=== PATIENT | male | born 1990 | race Caucasian/White ===

== ENCOUNTER 2018-01-24 09:00 | Emergency (ER) | payer OTHER, MEDICAID ==
[~2018-01-24] VITALS: Ht 190.5 cm; Wt 97.0 kg
[2018-01-24] MEDS ORDERED: IBUPROFEN 600MG TABLET PO ONE (10:30)
[2018-01-24] MEDS ORDERED: TETANUS, DIPHTHERIA, PERTUSSIS VAC/PF 0.5ML (>7YR OLD) IM ONE (10:30)
[2018-01-24] MEDS ORDERED: BACITRACIN ZINC OINT UDPKT TOP ONE (10:30)
[2018-01-24 11:23] VITALS: BP 135/87
== END 2018-01-24 11:25 | disposition home or self-care (01) ==
LOC: ER 09:00
DX: S01.81XA Laceration without foreign body of other part of head, initial encounter (principal); Y04.0XXA Assault by unarmed brawl or fight, initial encounter; Y93.89 Activity, other specified; Y92.89 Other specified places as the place of occurrence of the external cause; I10 Essential (primary) hypertension
CPT/HCPCS: 12001; 99283